=== PATIENT | female | born 1940 | race Caucasian/White ===

== ENCOUNTER 2018-08-10 13:10 | Emergency (ER) | payer MEDICARE, OTHER ==
[2018-08-10 13:17] VITALS: BP 150/93
[2018-08-10] MEDS ORDERED: ALBUTEROL SULFATE HFA (90 MCG/PUFF) 8 GM MDI (1 MDI/ER DISP) IH ONE (13:48)
--- NOTE | 2018-08-10 13:49 | ER Document Report ---
ED General - General Chief Complaint: Abdominal Pain >50 Stated Complaint: COUGH,CONGESTION Time Seen by Provider: 08/10/18 13:45 TRAVEL OUTSIDE OF THE [place] IN LAST 30 DAYS: No - HPI Patient complains to provider of: Cough congestion nausea vomiting diarrhea Notes: Patient coming in for a 2-week history of cough and congestion is seen in urgent care approximately twice placed on 2 different courses of steroids for 2 weeks states has completed this along with a nasal spray and Juany Watts continues to have symptoms now is developed nausea vomiting and diarrhea. Patient denies any antibiotics denies smoking history patient is visiting from [place]. Patient denies any specific area of pain. Otherwise patient looks well nontoxic upon my evaluation. - Related Data Allergies/Adverse Reactions: No Known Allergies Allergy (Unverified 08/10/18 13:11) Past Medical History - Social History Smoking Status: Never Smoker Chew tobacco use (# tins/day): No Frequency of alcohol use: None Drug Abuse: None Family History: Reviewed & Not Pertinent Patient has suicidal ideation: No Patient has homicidal ideation: No - Past Medical History Cardiac Medical History: Reports: Hx Hypertension Renal/ Medical History: Denies: Hx Peritoneal Dialysis Psychiatric Medical History: Reports: Hx Depression Past Surgical History: Reports: Hx Orthopedic Surgery - R knee replacement, L shoulder, Hx Tonsillectomy - &adenoids Review of Systems - Review of Systems Constitutional: Other - Cough congestion feeling unwell nausea vomiting diarrhea EENT: No symptoms reported Cardiovascular: No symptoms reported Respiratory: No symptoms reported Gastrointestinal: No symptoms reported Genitourinary: No symptoms reported Female Genitourinary: No symptoms reported Musculoskeletal: No symptoms reported Skin: No symptoms reported Hematologic/Lymphatic: No symptoms reported Neurological/Psychological: No symptoms reported -: Yes All other systems reviewed and negative Physical Exam - Vital signs Vitals: Temp Pulse Resp BP Pulse Ox 98.2 F 66 16 150/93 H 95 08/10/18 13:15 08/10/18 13:15 08/10/18 13:15 08/10/18 13:15 08/10/18 13:15 Interpretation: Normal - General General appearance: Appears well, Alert - HEENT Head: Normocephalic, Atraumatic Eyes: Normal Pupils: PERRL - Respiratory Respiratory status: No respiratory distress Chest status: Nontender Breath sounds: Normal Chest palpation: Normal - Cardiovascular Rhythm: Regular Heart sounds: Normal auscultation Murmur: No - Abdominal Inspection: Normal Distension: No distension Bowel sounds: Normal Tenderness: Nontender Organomegaly: No organomegaly - Back Back: Normal, Nontender - Extremities General upper extremity: Normal inspection, Nontender, Normal color, Normal ROM , Normal temperature General lower extremity: Normal inspection, Nontender, Normal color, Normal ROM , Normal temperature, Normal weight bearing. No: Krzysztof's sign - Neurological Neuro grossly intact: Yes Cognition: Normal Orientation: AAOx4 Leonie Coma Scale Eye Opening: Spontaneous [place] Coma Scale Verbal: Oriented [place] Coma Scale Motor: Obeys Commands Leonie Coma Scale Total: 15 Speech: Normal Motor strength normal: LUE, RUE, LLE, RLE Sensory: Normal - Psychological Associated symptoms: Normal affect, Normal mood - Skin Skin Temperature: Warm Skin Moisture: Dry Skin Color: Normal Course - Re-evaluation Re-evalutation: 08/10/18 20:48 Patient symptoms are consistent with a viral illness. I explained to the patient longevity of cough and congestion after being exposed to upper respiratory virus. Possibility of another viral etiology ongoing for her nausea vomiting and diarrhea patient otherwise looks well-hydrated physical examination not reveal any critical pathology. Recommend patient use honey for cough suppression continue with the nasal steroid antiemetics were given dietary changes were also given to help out with diarrhea. Patient states understanding patient was discharged home. - Vital Signs Vital signs: Temp Pulse Resp BP Pulse Ox 98.2 F 66 16 150/93 H 95 08/10/18 13:15 08/10/18 13:15 08/10/18 13:15 08/10/18 13:15 08/10/18 13:15 Discharge - Discharge Clinical Impression: Viral illness Condition: Good Disposition: HOME, SELF-CARE Instructions: Gastroenteritis (adult) ([facility]), Viral Syndrome ([facility]) Additional Instructions: Your physical examination is consistent with a viral illness. I would highly recommend she continue using the inhaler as needed for any shortness of breath. Honey for cough. Zofran and Phenergan for any nausea or vomiting to her having. We recommend eating a bland diet of starchy food for the next 24-48 hours and increasing the fiber in her diet may also increase her yogurt intake. Follow-up with your primary care physician return to the ER symptoms worsen. Prescriptions: Ondansetron [Zofran Odt] 4 mg PO Q6 PRN #30 tab.rapdis PRN Reason: For Nausea/Vomiting Promethazine HCl [Phenergan 25 mg Tablet] 25 mg PO Q6 #30 tablet Forms: Return to Work
== END 2018-08-10 13:50 | disposition home or self-care (01) ==
LOC: ER 13:10
DX: B34.9 Viral infection, unspecified (principal); R10.9 Unspecified abdominal pain; R05 Cough; R09.81 Nasal congestion; R11.2 Nausea with vomiting, unspecified; R19.7 Diarrhea, unspecified; I10 Essential (primary) hypertension
CPT/HCPCS: 99283; J3490